=== PATIENT | male | born 1935 | race Caucasian/White ===

== ENCOUNTER 2020-05-20 14:44 | Inpatient (IN) ==
[2020-05-25] MEDS ORDERED: Dextrose Gel 15 GM/37.5 ML TUBE PO PRN ×2 (17:15)
[2020-05-25] MEDS ORDERED: *HR* Dextrose 50 % in Water (Vial) 50 ML VIAL IVP PRN (17:15)
[2020-05-25] MEDS ORDERED: D5% in Water 1,000 ML IVC PRN (17:15)
[2020-05-25] MEDS ORDERED: Acetaminophen 325 MG TABLET PO PRN (17:20)
[2020-05-25] MEDS: Insulin LISPRO 300 UNITS/3 ML VIAL SQ SCH (18:16)
[2020-05-25] MEDS ORDERED: Insulin LISPRO 300 UNITS/3 ML VIAL SQ SCH (21:00)
[2020-05-25] MEDS: *HR* OxyCODONE Immed Rel 5 MG TABLET PO PRN (21:05)
[2020-05-25] MEDS: Apixaban 5 MG TABLET PO SCH (21:05)
[2020-05-25] MEDS: Gabapentin 300 MG CAPSULE PO SCH (21:06)
[2020-05-26] MEDS: *HR* OxyCODONE Immed Rel 5 MG TABLET PO PRN (05:50)
[2020-05-26 05:56] LABS: Basophils % 0.4 %; Eosinophils # 0.6 K/mcL (0.0-0.6); Eosinophils % 7.3 %; Hematocrit 31.5 % (37.5-50.1); Hemoglobin 10.4 g/dL (12.9-16.9); Immature Granulocytes % 0.8 % (0-4); Lymphocytes # 2.3 K/mcL (0.6-4.6); Lymphocytes % 27.4 %; Mean Corpuscular Hemoglobin 30.3 pg (28.0-33.3); Mean Corpuscular Volume 91.8 fL (83.0-100.0); Mean Platelet Volume 10.6 fL (9.4-12.4); Monocytes # 0.8 K/mcL (0.0-1.3); Monocytes % 10.2 %; Neutrophils # 4.5 K/mcL (1.6-8.9); Platelet Count 221 K/mcL (140-400); Red Blood Count 3.43 M/mcL (4.19-5.50); Red Cell Distribution Width 13.4 % (11.5-14.5); Segmented Neutrophils % 53.9 %; White Blood Count 8.3 K/mcL (4.3-11.1)
[2020-05-26 06:30] LABS: Calcium 8.5 mg/dL (8.6-10.3); Potassium 4.3 mEq/L (3.5-5.1)
[2020-05-26] MEDS: Apixaban 5 MG TABLET PO SCH ×2 (07:51→21:09)
[2020-05-26] MEDS: Cholecalciferol (D-3) 1,000 UNIT (25MCG) TABLET PO SCH (07:51)
[2020-05-26] MEDS: Insulin LISPRO 300 UNITS/3 ML VIAL SQ SCH ×4 (07:52→21:10)
[2020-05-26] MEDS: Cyanocobalamin (B-12) 1,000 MCG TABLET PO SCH (07:52)
[2020-05-26] MEDS ORDERED: lisinopriL 10 MG TABLET PO SCH (09:00)
[2020-05-26] MEDS ORDERED: amLODIPine 5 MG TABLET PO SCH (09:00)
[2020-05-26] MEDS ORDERED: Insulin LISPRO 300 UNITS/3 ML VIAL SQ SCH (17:15)
[2020-05-26] MEDS: Gabapentin 300 MG CAPSULE PO SCH (21:09)
[2020-05-27 05:17] LABS: Calcium 8.7 mg/dL (8.6-10.3); Potassium 4.9 mEq/L (3.5-5.1)
[2020-05-27] MEDS: Cholecalciferol (D-3) 1,000 UNIT (25MCG) TABLET PO SCH (08:15)
[2020-05-27] MEDS: Apixaban 5 MG TABLET PO SCH ×2 (08:15→20:58)
[2020-05-27] MEDS: Cyanocobalamin (B-12) 1,000 MCG TABLET PO SCH (08:16)
[2020-05-27] MEDS: Insulin LISPRO 300 UNITS/3 ML VIAL SQ SCH ×4 (08:19→21:01)
[2020-05-27] MEDS: *HR* OxyCODONE Immed Rel 5 MG TABLET PO PRN (10:40)
[2020-05-27] MEDS: lisinopriL 10 MG TABLET PO SCH (10:44)
[2020-05-27] MEDS: Gabapentin 300 MG CAPSULE PO SCH (20:58)
[2020-05-28] MEDS: Cholecalciferol (D-3) 1,000 UNIT (25MCG) TABLET PO SCH (07:59)
[2020-05-28] MEDS: Apixaban 5 MG TABLET PO SCH ×2 (07:59→22:04)
[2020-05-28] MEDS: lisinopriL 10 MG TABLET PO SCH (07:59)
[2020-05-28] MEDS: Insulin LISPRO 300 UNITS/3 ML VIAL SQ SCH ×4 (08:01→22:05)
[2020-05-28] MEDS: Cyanocobalamin (B-12) 1,000 MCG TABLET PO SCH (08:02)
[2020-05-28] MEDS ORDERED: lisinopriL 10 MG TABLET PO STA (09:36)
[2020-05-28] MEDS ORDERED: Ondansetron 4 MG/2 ML VIAL IVP PRN (11:04)
[2020-05-28] MEDS ORDERED: Ondansetron ODT 4 MG TAB.RAPDIS SL PRN (11:04)
[2020-05-28] MEDS: Gabapentin 300 MG CAPSULE PO SCH (22:04)
[2020-05-28] MEDS: *HR* OxyCODONE Immed Rel 5 MG TABLET PO PRN (22:05)
[2020-05-29 06:52] VITALS: BP 149/69
[2020-05-29] MEDS: Cholecalciferol (D-3) 1,000 UNIT (25MCG) TABLET PO SCH (08:43)
[2020-05-29] MEDS: Apixaban 5 MG TABLET PO SCH (08:43)
[2020-05-29] MEDS: Cyanocobalamin (B-12) 1,000 MCG TABLET PO SCH (08:44)
[2020-05-29] MEDS: Insulin LISPRO 300 UNITS/3 ML VIAL SQ SCH ×2 (08:47→12:15)
[2020-05-29] MEDS ORDERED: lisinopriL 20 MG TABLET PO SCH (09:00)
[2020-05-29] MEDS ORDERED: lisinopriL 10 MG TABLET PO SCH (09:00)
== END 2020-05-29 16:10 | disposition home health service (06) | DRG 949 ==
LOC: INPGRE 05-25 16:10
PROVIDERS: ADMIT Family Medicine; ATTEND Family Medicine